=== PATIENT | male | born 1960 | race Two or more races ===

== ENCOUNTER → 2021-07-07 | Outpatient (CLI) | payer BC ==
[~2021-07-07] MED LIST: ASPI81CH PO; ASPI81EC; ATEN25; CIPR500 PO; FENO145 PO; FENO67; FEXO180; FEXPSEER PO; FISH1000 PO; METTREX2.5; OTEZLA30 MG PO; OXYACE5T PO; OXYC5 PO; PROBIOTIC1 EAC1 PO; TAMS.4ER PO; TELM80; TELM80/12.5 PO; UBID10 PO
[2021-07-07 17:02] LABS: BASOPHILS ABSOLUTE AUTO 0.03 K/mm3 (0.00-0.23); BASOPHILS PERCENT AUTO 0 % (0-2); EOSINOPHILS ABSOLUTE AUTO 0.06 K/mm3 (0.00-0.68); EOSINOPHILS PERCENT AUTO 1 % (0-6); Hematocrit 42.4 % (37.0-53.0); Hemoglobin 15.2 g/dL (13.5-17.5); IMMATURE GRAN ABSOLUTE AUTO 0.03 K/mm3 (0.00-0.10); IMMATURE GRAN PERCENT AUTO 0 % (0-1); LYMPHOCYTES ABSOLUTE AUTO 2.27 K/mm3 (0.84-5.20); LYMPHOCYTES PERCENT AUTO 23 % (21-46); MONOCYTES ABSOLUTE AUTO 0.88 K/mm3 (0.16-1.47); MONOCYTES PERCENT AUTO 9 % (4-13); Mean Corpuscular HGB 31.6 pg (26.0-34.0); Mean Corpuscular HGB Conc 35.8 g/dL (31.5-36.5); Mean Corpuscular Volume 88 fL (80-100); Mean Platelet Volume 9.1 fL (9.1-12.4); NEUTROPHILS ABSOLUTE AUTO 6.75 K/mm3 (1.96-9.15); NEUTROPHILS PERCENT AUTO 67 % (41-73); Platelet Count 206 K/mm3 (150-400); RDW Coefficient Variation 12.1 % (11.7-14.2); RDW Standard Deviation 39.1 fL (35.1-46.3); Red Blood Cell Count 4.81 M/mm3 (4.30-5.90); White Blood Cell Count 10.02 K/mm3 (4.00-11.30)
== END | disposition home or self-care (01) ==
LOC: LAB SHORT 16:59 → LAB 16:59
PROVIDERS: Physician Assistant Surgical
DX: L03.211 Cellulitis of face (principal)
CPT/HCPCS: 85025

== ENCOUNTER 2025-02-24 11:05 | Day surgery (SDC) | payer OTHER ==
[~2025-02-24] VITALS: Ht 172.7 cm; Wt 97.8 kg
[~2025-02-24 11:05] MED LIST changes: +Lactated Ringer's 1,000 ML IV ONE; +propofoL 50 ML IV ONE
[2025-02-24] MEDS ORDERED: METF500 (11:46)
[2025-02-24] MEDS ORDERED: GABA300 (11:47)
[2025-02-24] MEDS ORDERED: CATAPRES0.1 MG (11:47)
[2025-02-24] MEDS ORDERED: SERT100 (11:48)
[2025-02-24] MEDS ORDERED: CLON1 (11:48)
[2025-02-24] MEDS ORDERED: SERT50 (11:48)
[2025-02-24] MEDS ORDERED: Crestor40 MG (11:49)
[2025-02-24] MEDS ORDERED: TIMO.5OPSO (11:50)
[2025-02-24] MEDS ORDERED: LOSARTAN-HCTZ1 EACH (11:50)
[2025-02-24] MEDS ORDERED: Triamcinolone A15 G3 (11:51)
[2025-02-24] MEDS ORDERED: GLUC500 (11:52)
[2025-02-24] MEDS ORDERED: LATA.005SO (11:52)
[2025-02-24] MEDS ORDERED: ALBU90OI (11:53)
[2025-02-24] MEDS ORDERED: FISH OIL 1,0001 EA10 (11:54)
[2025-02-24] MEDS ORDERED: Lactated Ringer's 1,000 ML IV ONE (12:43)
[2025-02-24 13:45] VITALS: BP 144/70
== END 2025-02-24 13:50 | disposition home or self-care (01) ==
LOC: ORSCSDS 11:05
PROVIDERS: Surgery
PROC: 0DBL8ZX Excision of Transverse Colon, Via Natural or Artificial Opening Endoscopic, Diagnostic (ICD-10-PCS; principal; 2025-02-24 13:00)
DX: Z12.11 Encounter for screening for malignant neoplasm of colon (principal); Z90.49 Acquired absence of other specified parts of digestive tract; D12.3 Benign neoplasm of transverse colon; E11.9 Type 2 diabetes mellitus without complications; F32.A Depression, unspecified; E78.5 Hyperlipidemia, unspecified; I10 Essential (primary) hypertension; Z79.84 Long term (current) use of oral hypoglycemic drugs; Z79.899 Other long term (current) drug therapy
CPT/HCPCS: 82947; 88305; J2704; J7120